=== PATIENT | female | born 1940 | race Caucasian/White ===

== ENCOUNTER 2021-03-01 13:03 | Outpatient (CLI) | payer MEDICARE | END 2021-03-01 13:04 | disposition home or self-care (01) | LOC: CSHMAMMO 13:03 | PROVIDERS: ATTEND Internal Medicine Hematology & Oncology | DX: D05.12 Intraductal carcinoma in situ of left breast (principal) | CPT/HCPCS: 77066; G0279 ==

== ENCOUNTER 2021-08-17 10:07 | Outpatient (CLI) | payer MEDICARE | END 2021-08-17 10:08 | disposition home or self-care (01) | LOC: CSHCT 10:07 | PROVIDERS: ATTEND Psychiatry & Neurology Neurology | DX: G30.1 Alzheimer's disease with late onset (principal); F02.80 Dementia in other diseases classified elsewhere, unspecified severity, without behavioral disturbance, psychotic disturbance, mood disturbance, and anxiety; G31.89 Other specified degenerative diseases of nervous system | CPT/HCPCS: 70450 ==